=== PATIENT | female | born 1970 | race Caucasian/White ===

== ENCOUNTER 2024-04-04 17:37 | Inpatient (IN) | payer OTHER, SELFPAY ==
[2024-04-04] VITALS (13 sets, daily range): BP systolic 117–147; BP diastolic 81–101; BMI 19.9
[2024-04-04 13:01] LABS: % Basophils 0.7 % (0-2); % Eosinophils 0.9 % (0-6); % Immature Granulocytes 0.4 % (0-0.5); % Lymphocytes 9.9 % (20.5-51.1); % Monocytes 3.9 % (1.7-9.3); % Neutrophils 84.2 % (42.2-75.2); Absolute Basophils 0.1 10^3/uL (0-0.2); Absolute Eosinophils 0.1 10^3/uL (0-0.7); Absolute Immature Granulocytes 0.1 10^3/uL (0-0.05); Absolute Lymphocytes 1.3 10^3/uL (1.2-3.4); Absolute Monocytes 0.5 10^3/uL (0.1-0.6); Hematocrit 47.6 % (37.0-47.0); Hemoglobin 16.4 g/dL (12.0-16.0); Mean Corp Hgb Conc. 34.5 g/dL (33.0-37.0); Mean Corpuscular Hgb 34.2 pg (27.0-31.0); Mean Corpuscular Volume 99.4 fL (81.0-99.0); Mean Platelet Volume 10.3 fL (7.4-10.4); Nucleated Red Blood Cells % 0 %; Platelet Count 302 10^3/uL (130-400); Red Blood Cell Count 4.79 10^6/uL (4.20-5.40); Red Cell Dist. Width 12.1 % (11.5-14.5)
[2024-04-04 13:22] LABS: ALT (SGPT) 21 U/L (0-35); AST (SGOT) 25 U/L (14-36); Albumin 5.8 g/dl (3.5-5.0); Alkaline Phosphatase 89 U/L (38-126); Blood Urea Nitrogen 17 mg/dl (7-17); Calcium 10.8 mg/dl (8.4-10.2); Carbon Dioxide 24 mmol/L (22-30); Chloride 105 mmol/L (98-107); Estimated Creatinine Clearance 69 ml/min; Glucose 125 mg/dl (70-99); Potassium 5.3 mmol/L (3.5-5.1); Sodium 144 mmol/L (135-145); Total Bilirubin 0.6 mg/dl (0.2-1.3); Total Protein 9.3 g/dl (6.3-8.2); eGFR > 60.00
--- NOTE | 2024-04-04 13:28 | ED.GENMED ---
History of Present Illness
<Nancy aClhoun PA-C - Last Filed: 04/04/24 16:53>
General
Chief Complaint: Blood Pressure Problem
Source: patient
Exam Limitations: none
Time Seen by Provider: 04/04/24 12:51
Nursing documentation reviewed up to this point in time: agreed with
Travel History
Have you had any contact with someone who has COVID-19?: No
Do you have any symptoms of coronavirus? Fever > 100 degrees, chills, cough, shortness of breath, sore throat, loss of taste or smell, muscle aches, or headache?: No
History of Present Illness
History of Present Illness:
pt is a 53 y/o F with h/o tachycardia, HTN on losartan
also believes she has some autoimmune process, RA or PMR
has had joitn swelligns and back pain/shoulder pain that she has had prednisone for. she say sshe will take a dose here or there of 60 mg, sometimes using another 40 mg a few days later if still having pains
she has not done a higher dose in a while
but 6 days ago she took 10 mg prednisone but that was it
she is here for having elevated BP readings athome
pt was hospitalized in 11/10 for sepsis related to salmonella colitis
she says ever since then she does have some looser stools but nothing like when she had colitis
she has also had elevated BP readings, and was put on losartan
more recently the 25 mg was inc to 50 mg about 2 weeks ago for readings 190s/110s
pt says that in few days (specifically evenings) pt is having trouble 'regulating my temperature' - feeling cold
she also has had bp readings 140s/90s like this morning
she feels very cold
she denies headache, sore throat, cough, abdomianl pain, vomiting, urinary symptoms
pt has had some joint swelling in right thumb/hand c/w her preivous'flare ups'
she has not had any recent abx, hosptializations
she denies anyIVDA.
Past History
<Nancy Calhonu PA-C - Last Filed: 04/04/24 16:53>
Past History
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
ED Past Surgical History: Orthopedic, Urological (Donor nephrectomy Left) and Other (Oral surgery )
Social History
Tobacco: Former smoker
Alcohol: Daily (wine 1-2 glasses)
Drug: None
Personal:
Living: with family
Employment: Employed
Family History
Family History: Hypertension
Review of Systems
<Nancy Calhoun PA-C - Last Filed: 04/04/24 16:53>
Review of Systems
Allergies reviewed?: Yes
All Other Systems: Not applicable
Phy Exam
<Nancy Calhoun PA-C - Last Filed: 04/04/24 16:53>
Physical Exam
Physical Exam:
GENERAL: AWAKE BUT SOMEWHAT DROWSY, EYES SEEM HEAVY
EYE: pupils equal and reactive
NECK: Supple
ENT: o/p clr, mmm.
CARDIAC: bradycardia, irregular
LUNGS: Clear breath sounds bilaterally, no acute respiratory distress, no wheezes/rales/rhonchi
ABDOMEN: Soft, without focal tenderness, no r/g, no cvat, normal bowel sounds
NEUROLOGICAL: Alert and oriented, no focal neuro deficits
SKIN: Warm and dry, skin intact.mottled
MUSCULOSKELETAL: No edema, well perfused. neg renae's sign
PSYCH: Normal and appropriate interaction.
Course
<Nancy Calhoun PA-C - Last Filed: 04/04/24 16:53>
Orders/Labs/Results
Orders:
Orders
04/04/24 12:27
EKG [Electrocardiogram (*1)] Urgent
Reason for Study: Bradycardia / Tachycardia
EKG- Treatment ONCE
04/04/24 12:51
Complete Blood Count/With Diff Urgent
Comprehensive Metabolic Panel Urgent
Cortisol, Random Urgent
Comment: ADD ON
TSH Reflex To Free T4 Urgent
Comment: ADD ON
Blood Culture Urgent
CHRISTINE Source: Blood/Venous
Specimen Description:
04/04/24 13:19
Add On- LAB Urgent
Tests Added?: tsh reflex t4
C DIFF [C difficile Antigen & Toxins] Urgent
CHRISTINE Source: Feces/Stool
Specimen Description:
Stool Culture Urgent
CHRISTINE Source: Feces/Stool
Specimen Description:
04/04/24 13:41
CT Abd/Pel (IV only)-DH only Urgent
Comment:
Reason For Exam: h/o colitis, hypothermia, sepsis
CR Chest - 2 Views Urgent
Comment:
Reason For Exam: hypothermia
04/04/24 13:42
Add On- LAB Urgent
Tests Added?: cortisol
0.9% Sodium Chloride 1000 ml [Nss] 1,000 ml IV BOLUS
Hydrocortisone Sod Succinate [Solu-Cortef] 100 mg IV NOW STA
04/04/24 14:01
COVID-19 Antigen Urgent
Source: Nasal Swab
Fentanyl, Urine Urgent
Lactic Acid Urgent
Urinalysis Reflex To Culture Urgent
Date Specimen was Collected: 04/04/24
Time Specimen was Collected: 13:56
Urine Drug Abuse Screen Urgent
Date Specimen was Collected: 04/04/24
Time Specimen was Collected: 13:56
Urine Microscopic Reflex Cult Urgent
Blood Culture Urgent
CHRISTINE Source: Blood/Venous
Specimen Description:
Influenza A+B Rapid Molecular Urgent
CHRISTINE Source: Nasal Swab
Specimen Description:
Abnormal Lab Results
04/04/24 04/04/24
12:51 14:01
WBC 13.0 H 10^3/uL
(4.8-10.8)
Hgb 16.4 H g/dL
(12.0-16.0)
Hct 47.6 H %
(37.0-47.0)
MCV 99.4 H fL
(81.0-99.0)
MCH 34.2 H pg
(27.0-31.0)
Abs Immat Gran (auto) 0.1 H 10^3/uL
(0-0.05)
Absolute Neuts (auto) 11.0 H 10^3/uL
(1.4-6.5)
Neutrophils % 84.2 H %
(42.2-75.2)
Lymphocytes % 9.9 L %
(20.5-51.1)
Potassium 5.3 H mmol/L
(3.5-5.1)
Glucose 125 H mg/dl
(70-99)
Lactic Acid 2.7 H mmol/L
(0.7-2.0)
Calcium 10.8 H mg/dl
(8.4-10.2)
Total Protein 9.3 H g/dl
(6.3-8.2)
Albumin 5.8 H g/dl
(3.5-5.0)
Leukocyte Esterase Rfl Trace A
(Negative)
Ur Buprenorphine Positive H
(Negative)
Ur Amphetamines Screen Positive H
(Negative)
U Benzodiazepines Scrn Positive H
(Negative)
U Marijuana (THC) Screen Positive H
(Negative)
04/04/24 12:51
04/04/24 12:51
Vital Signs
Initial and Last Documented VS:
Initial Vital Signs
Pulse Resp BP Pulse Ox
58 16 142/87 99
04/04/24 11:19 04/04/24 11:19 04/04/24 11:19 04/04/24 11:19
Last Documented Vital Signs
Temp Pulse Resp BP Pulse Ox
96.9 F L 71 11 123/89 99
04/04/24 16:22 04/04/24 16:15 04/04/24 16:00 04/04/24 16:15 04/04/24 16:15
<Russell Wu, DO - Last Filed: 04/04/24 13:48>
Orders/Labs/Results
Orders:
Orders
04/04/24 12:27
EKG [Electrocardiogram (*1)] Urgent
Reason for Study: Bradycardia / Tachycardia
EKG- Treatment ONCE
04/04/24 12:51
Complete Blood Count/With Diff Urgent
Comprehensive Metabolic Panel Urgent
Cortisol, Random Urgent
Comment: ADD ON
TSH Reflex To Free T4 Urgent
Comment: ADD ON
Blood Culture Urgent
CHRISTINE Source: Blood/Venous
Specimen Description:
04/04/24 13:19
Add On- LAB Urgent
Tests Added?: tsh reflex t4
C DIFF [C difficile Antigen & Toxins] Urgent
CHRISTINE Source: Feces/Stool
Specimen Description:
Stool Culture Urgent
CHRISTINE Source: Feces/Stool
Specimen Description:
04/04/24 13:41
CT Abd/Pel (IV only)-DH only Urgent
Comment:
Reason For Exam: h/o colitis, hypothermia, sepsis
CR Chest - 2 Views Urgent
Comment:
Reason For Exam: hypothermia
04/04/24 13:42
Add On- LAB Urgent
Tests Added?: cortisol
0.9% Sodium Chloride 1000 ml [Nss] 1,000 ml IV BOLUS
Hydrocortisone Sod Succinate [Solu-Cortef] 100 mg IV NOW STA
04/04/24 14:01
COVID-19 Antigen Urgent
Source: Nasal Swab
Fentanyl, Urine Urgent
Lactic Acid Urgent
Urinalysis Reflex To Culture Urgent
Date Specimen was Collected: 04/04/24
Time Specimen was Collected: 13:56
Urine Drug Abuse Screen Urgent
Date Specimen was Collected: 04/04/24
Time Specimen was Collected: 13:56
Urine Microscopic Reflex Cult Urgent
Blood Culture Urgent
CHRISTINE Source: Blood/Venous
Specimen Description:
Influenza A+B Rapid Molecular Urgent
CHRISTINE Source: Nasal Swab
Specimen Description:
Abnormal Lab Results
04/04/24 04/04/24
12:51 14:01
WBC 13.0 H 10^3/uL
(4.8-10.8)
Hgb 16.4 H g/dL
(12.0-16.0)
Hct 47.6 H %
(37.0-47.0)
MCV 99.4 H fL
(81.0-99.0)
MCH 34.2 H pg
(27.0-31.0)
Abs Immat Gran (auto) 0.1 H 10^3/uL
(0-0.05)
Absolute Neuts (auto) 11.0 H 10^3/uL
(1.4-6.5)
Neutrophils % 84.2 H %
(42.2-75.2)
Lymphocytes % 9.9 L %
(20.5-51.1)
Potassium 5.3 H mmol/L
(3.5-5.1)
Glucose 125 H mg/dl
(70-99)
Lactic Acid 2.7 H mmol/L
(0.7-2.0)
Calcium 10.8 H mg/dl
(8.4-10.2)
Total Protein 9.3 H g/dl
(6.3-8.2)
Albumin 5.8 H g/dl
(3.5-5.0)
Leukocyte Esterase Rfl Trace A
(Negative)
Ur Buprenorphine Positive H
(Negative)
Ur Amphetamines Screen Positive H
(Negative)
U Benzodiazepines Scrn Positive H
(Negative)
U Marijuana (THC) Screen Positive H
(Negative)
04/04/24 12:51
04/04/24 12:51
Vital Signs
Initial and Last Documented VS:
Initial Vital Signs
Pulse Resp BP Pulse Ox
58 16 142/87 99
04/04/24 11:19 04/04/24 11:19 04/04/24 11:19 04/04/24 11:19
Last Documented Vital Signs
Temp Pulse Resp BP Pulse Ox
96.9 F L 71 11 123/89 99
04/04/24 16:22 04/04/24 16:15 04/04/24 16:00 04/04/24 16:15 04/04/24 16:15
<Nancy Calhoun PA-C - Last Filed: 04/04/24 16:53>
MDM/Problems Addressed
Differential Diagnosis Includes:
myxedema, sepsis, adrenal crisis
MDM/Problems Addressed:
53 y/o F with h/o htn on losartan; salmonella colitis in 11/10 causing sepsis;
and self-proclaimed PMR or RA of some sort that she self treats with prednisone here and there
here with hypothermia x 2-3 days, feeling really cold at home and having elevated bp readings 140s/90s
pt was sleepy, bradycardic 40s-50s, hypothermic 91 core temp on arrival, normal BP
really no exam findings that were concerning
recently last took pred about 6 days ago she says, just 10 mg
given stress dose steroids and w/u for sepsis; her lactic is 2.7, wbc 13, other labs are unremarkable, including normal sodium, normal tsh
chest xr neg, ua neg, ctap neg
initial supsicion was sepsis vs. hypothyroid vs. adrenal insufficience
her temp is up to 96 core after beirhugger
but will admit for unclear cause of hypothermia
seen by ed attending dr. wu
<Russell Wu DO - Last Filed: 04/04/24 13:48>
*Critical Care Note
Total Time (30-74mins, 75-104mins- exclusive of procedures): 30
ED Attending Note
<Nancy Calhoun PA-C - Last Filed: 04/04/24 16:53>
-
Portions of this chart may have been created with voice recognition software.� Occasional wrong word or��sound alike� substitutions may have occurred due to the inherent limitations of voice recognition software.
<Russell Wu DO - Last Filed: 04/04/24 13:48>
ED Attending Note
Patient seen and examined by attending physician: Yes
I performed the substantive portion of visit, reviewed & personally made and approve the management plan that is documented in note by myself or HERBERT.: Yes
ED Attending Note:
Seen with PA examined independently 53-year-old female presents with fatigue severe hypothermia
Takes steroids on her own for back pain no history of thyroid issue was admitted with bacteremia few months ago
Looks confused here, plan will be cultures stress dose steroids admission
Discharge Plan
Departure
Patient Disposition: Admit
Date of Disposition: 04/04/24
Time of Disposition: 16:23
Admit to: Telemetry
Presentation/result/management discussed w/ accepting MD/DO: Hospitalist
Condition: Fair
Covid-19: Not Applicable
Discharge Problem:
Hypothermia
Prescriptions:
No Action
losartan 50 mg tablet
50 mg PO DAILY
ondansetron HCl 4 mg tablet
4 mg PO Q8H PRN (Reason: nausea/vomiting)
propranolol 60 mg capsule,extended release 24 hr
60 mg PO DAILY PRN (Reason: tachycardia)
oxycodone-acetaminophen 5-325 mg tablet
1 tab PO Q4H PRN (Reason: moderate pain)
Patient Comments:
04/04/2024: last filled 03/20/24, 20 tabs for 10 days from [facility]
potassium chloride 10 mEq tablet,ER particles/crystals
10 meq PO DAILY PRN (Reason: cramping)
omega 5-jmo-npz-fish oil [Fish Oil] 1,000 mg (120 mg-180 mg) Capsule
1 cap PO DAILY PRN (Reason: supplement)
Daily Greens
1 tab PO DAILY PRN (Reason: supplement)
rizatriptan [Maxalt] 10 mg Tablet
10 mg PO DAILY PRN (Reason: migraine)
Referrals:
Amilcar Crawford MD [Family Provider] -
Interventions
Interventions:
*Risk Screen - Suicide Last Done: 04/04/24 11:19
*General Assessment Last Done: 04/04/24 12:28
*Neglect/Abuse Screening Last Done: 04/04/24 11:19
ED- Fall Risk Assessment Last Done: 04/04/24 12:31
*ED COVID-19 Vaccine History Last Done: 04/04/24 11:19
ED- Cardiac Assessment Last Done: 04/04/24 12:31
ED- Neurological Assessment Last Done: 04/04/24 12:31
ED- Pulmonary Assessment Last Done: 04/04/24 12:31
Discharge Date and Time
Print Language: TELUGU
[2024-04-04] MEDS: SOLU-CORTEF 100 MG IV (14:34)
[2024-04-04] MEDS: NSS 1000 IV (14:34)
[2024-04-04 14:39] LABS: Lactic Acid 2.7 mmol/L (0.7-2.0); Urine Albumin Negative (Neg - Trace); Urine Bilirubin Negative (Negative); Urine Character Clear (Clear); Urine Color Yellow; Urine Glucose Negative (Negative); Urine Ketone Negative (Negative); Urine Leukocyte Trace (Negative); Urine Nitrite Negative (Negative); Urine Occult Blood Negative (Negative); Urine Specific Gravity 1.025 (<1.030); Urine Urobilinogen Negative (Neg - 1+)
[2024-04-04 14:45] LABS: COVID-19 Antigen Negative (Negative)
[2024-04-04 15:06] LABS: Amphetamines Positive (Negative); Barbiturates Negative (Negative); Benzodiazepines Positive (Negative); Buprenorphine Positive (Negative); Cocaine Negative (Negative); Marijuana Positive (Negative); Methadone Negative (Negative); Methamphetamines Negative (Negative); Opiates Negative (Negative); Phencyclidine Negative (Negative); Tricyclic Antidepressants Negative (Negative)
[2024-04-04 15:12] LABS: Urine Mucus Many
[2024-04-04 15:13] LABS: Urine Amorphous Seen; Urine Urothelial Cell 0-2 /LPF (FEW)
[2024-04-04 15:14] LABS: Urine Red Blood Cell 0-2 /HPF (0-2); Urine White Cell 0-2 /HPF (0-5)
[2024-04-04 15:29] LABS: Fentanyl, Urine Negative (Negative)
[2024-04-04 16:20] LABS: Cortisol, Random 30.9 ug/dl; TSH Reflex To Free T4 3.61 uIU/ml (0.47-4.68)
--- NOTE | 2024-04-04 16:56 | W.PN.UPDATE ---
Update Note
Progress Note Update
This note serves as an addendum to H&P written by SARANYA Aparicio.
I saw and examined the patient.
The LIBRARIAN's note was reviewed and I agree with the note.
Comment:
Ms. Elissa Shepherd is a 53 yo woman with hx migraine, admission 11/10 for sepsis 2/2 Salmonella colitis, PMR versus RA on intermittent prednisone dosing presents to the ER feeling cold and with BP 140/90's.
Triage VS: T 96.9, P 58, RR 16, BP 142/87, SpO2 99%
LABS: WBC 13, Hg 16.4, PLT 302, Na 144, K+ 5.3, Cr 0.9, Glucose 125, Lactate 2.7, random cortisol was 30.9, TSH 3.61
UA with 0-2 WBC and trace leuk esterase
UTox positive for buprenorphine, amphetamines, benzodiazepines, marijuana
CT A/P
IMPRESSION:
1. No CT evidence of significant colitis or bowel inflammatory process. No evidence of intestinal obstruction.
2. Mild fecal retention within the rectum suggestive of constipation.
3. Mild colonic diverticulosis without evidence of diverticulitis.
CXR
IMPRESSION:
Thick band of subsegmental atelectasis or scarring in the anteromedial basilar segment of the left lower lobe.
Patient placed on Vlad Hugger with improvement in body temperature , IV hydrocortisone 100 x 1, IVF
Hypothermia
Bradycardia
Severe Sepsis versus SIRS 2/2 drug use/withdrawal with elevated lactate
-admit to IMU
-no source of infection identified but given presentation will treat with broad spectrum antibiotics until cultures return
-continue IV Vanc/Cefepime
-F/U blood cultures
-patient denied drug use to me; stated maybe she mistook her son's aderall for her probiotics
-trend lactate and bolus PRN
-vlad hugger as needed
-TSH and Cortisol level WNL
Hx Salmonella with post-hospitalization course c/b joint pains
-patient reports right shoulder stiffness and pain in mornings that gets better throughout the day
-states local Rheumatologists won't take her insurance; could possibly follow in the city
-she takes prednisone as needed but denies daily dosing and last dose was 6 days ago- cortisol levels WNL
Hx Migraines
-can order reglan and benadryl PRN
-patient worried she gets migraines with antibiotics
-will also order probiotics
76 minutes spent on patient evaluation, plan of care.
--- NOTE | 2024-04-04 17:28 | HPS.HSE ---
Family Physician
-
Family Physician: Amilcar Crawford
Chief Complaint
-
Hypothermia
History of Present Illness
This is a 53 year old female with a past medical history of hypertension who presents to ED with parents at bedside due to hypothermia. Family at bedside states that the patient appeared confused, cyanotic and had slurred speech this morning. Upon
taking her temperature, it was 91 degrees. Patient also states she has intermittent nausea and had episode of loose stools yesterday which is unusual for her. She also complains of joint pain since her last admission for which she takes prednisone
as needd. Her last dose of prednisone was 10 mg on Sunday. She denies chest pain or shortness of breath.
Medical History
Past Medical History
Past Medical History: Reports Other
Additional Past Medical History:
Essential Hypertension
Asthma
Migraine Headache
Solitary Kidney
Past Surgical History: Reports Other
Additional Past Surgical History:
Right Breast Lumpectomy
Microdiscectomy
Giant Cell Tumor Removal Right Mandible
Left Nephrectomy (patient was a donor)
Bilateral Knee Ligament Surgery
Social History
Tobacco: Former Smoker
Alcohol: Daily (2 glasses of wine)
Family History
Family History: Other (father hx chrons and RA, Maternal grandmom diverticulosis)
Allergies / Home Medications
Allergies reflects when Allergies were last updated in [facility].
Home Medications with original date entered in [facility]
Allergy/Medication List:
Allergies
Allergy/AdvReac Type Severity Reaction Status Date / Time
No Known Allergies Allergy Verified 04/04/24 17:26
Home Medications
Daily Greens 1 tab PO DAILY PRN supplement 04/04/24
losartan 50 mg tablet 50 mg PO DAILY 04/04/24
omega 9-nyh-vfy-fish oil 1,000 mg (120 mg-180 mg) capsule (Fish Oil) 1 cap PO DAILY PRN supplement 04/04/24
ondansetron HCl 4 mg tablet 4 mg PO Q8H PRN nausea/vomiting 04/04/24
oxycodone-acetaminophen 5 mg-325 mg tablet 1 tab PO Q4H PRN moderate pain 04/04/24
potassium chloride 10 mEq tablet,extended release(part/cryst) 10 meq PO DAILY PRN cramping 04/04/24
propranolol 60 mg capsule,24 hr,extended release 60 mg PO DAILY PRN tachycardia 04/04/24
rizatriptan 10 mg tablet (Maxalt) 10 mg PO DAILY PRN migraine 04/04/24
Review of Systems
-
A 12 point ROS was completed and negative except as noted: Yes
Constitutional: Reports Chills; Denies Fever
Respiratory: Denies Cough or Trouble Breathing
Cardiac: Denies Chest Pain
Abdomen/GI: Reports Other (Loose stools yeseterday); Denies Abdominal Pain
Physical Exam
Vital Signs
Vital Signs
Temp Pulse Resp BP Pulse Ox
96.9 F L 74 15 131/96 100
04/04/24 16:22 04/04/24 17:15 04/04/24 17:00 04/04/24 17:00 04/04/24 17:00
Physical Exam
General: Well Developed and Well Nourished
HEENT: Moist mucous membranes and Atraumatic
Respiratory: Clear and Non Labored Respirations
Cardiac: S1/S2, Regular Rhythm and Bradycardia (Slightly)
GI: Soft and Non Tender
Musculoskeletal: No Clubbing, No Cyanosis and No Edema
Skin: Warm and Dry
Neuro: Awake, Alert, No Motor Deficits and Other (Slow to respond to questions)
Laboratory Results
-
04/04/24 12:51
04/04/24 12:51
Laboratory Results
Lactic Acid 2.7 mmol/L (0.7-2.0) H 04/04/24 14:01
Total Bilirubin 0.6 mg/dl (0.2-1.3) 04/04/24 12:51
AST 25 U/L (14-36) 04/04/24 12:51
ALT 21 U/L (0-35) 04/04/24 12:51
Alkaline Phosphatase 89 U/L (38-126) 04/04/24 12:51
Data Reviewed
-
Diagnostic Radiology: Report Reviewed by me
CT Scan: Report Reviewed by me
Lab Data: Labs Reviewed by me
Impression/Plan
-
Hypothermia, possible Sepsis vs SIRS secondary to drug use/withdrawal with elevated lactic acid
-Continue vancomycin and cefepime
-Continue warming blanket
-Await blood cultures
-Trend lactic acid level
Hyperkalemia / Hypercalcemia, suspect volume depletion
-Continue IVFs
-Hold losartan
-Repeat labs in AM
Essential Hypertension
-Hold losartan
Migraine Headache
-Continue Benadryl and Reglan prn
DVT proph: Lovenox
Code Status: Full Code
[2024-04-04] MEDS: VANCOCIN 300 MG IV (17:55)
[2024-04-04] MEDS: VANCOCIN 300 ML IV (17:55)
[2024-04-04 19:11] LABS: Lactic Acid 1.1 mmol/L (0.7-2.0)
--- NOTE | 2024-04-04 19:33 | PHA.VAN.IN ---
Assessment
- Assessment
Renal Function: Appears similar to baseline
Minimum Temperature: 91 F rectal 04/04 @ 1130
Concomitant Antimicrobials: cefepime
AUC Dosing Plan
- Dosing Variables
Dosing Weight (kg): 59.2
Dosing CrCl (ml/min): 69
Vd coefficient (L/kg): 0.7
- Empiric Dosing
Initial / Loading Dose: vanc 1500mg administered @ 1755
Maintenance Regimen: vanc 500mg Q12 starting 04/05 0600
Estimated AUC (mcg*h/mL): 403
Estimated Peak (mcg*h/mL): 23.1
Estimated Trough (mcg/ml): 11.7
Estimated Half Life (H): 11.2
- Monitoring
No levels ordered at this time: consider levels in next few days
Pharmacokinetics Vancomycin I
- -
Patient Age: 53
Patient Sex: Female
Vancomycin Day #: 1
Indication: Bacteremia
Requesting Provider: Dr. Hernadez
Pertinent Antimicrobial Allergies:
no pertinent antimicrobial allergies
Height / Weight:
Height 5 ft 8 in
Actual Weight 59.24 kg
- Vital Signs / Lab Results
Temp Pulse Resp BP Pulse Ox
97.6 F 81 16 131/96 100
04/04/24 19:32 04/04/24 18:30 04/04/24 18:30 04/04/24 17:00 04/04/24 18:15
Lab Results - Hematology
04/04/24
12:51
WBC 13.0 H
Lab Results - Chemistry
04/04/24
12:51
BUN 17
Creatinine 0.9
Estimated Creat Clear 69
Albumin 5.8 H
04/04/24 04/04/24
14:01 18:51
Lactic Acid 2.7 H 1.1
Lab Results - Urine
04/04/24
14:01
Urine Nitrite (Reflex) Negative
Leukocyte Esterase Rfl Trace A
Urine WBC (Reflex) 0-2
Ur Squamous Epith Cells 3-5
Microbiology Results
04/04/24 14:01 Influenza Types A & B (JUSTICE) - Final
Nasal Swab Negative for Influenza A & B, NAAT
Negative results must be combined with clinical observations
and patient history.
Nucleic Acid Amplification test (NAAT)performed on the
[employer] NOW platform.
--- NOTE | 2024-04-04 19:38 | PTCARENOTE ---
Received from ED 3356- IMU monitors placed- IV Bo in progress. Temp 98.1 orally- warm blankets placed.
[2024-04-04] MEDS: LR 1000 IV (20:18)
[2024-04-04] MEDS: STERILE WATER FOR INJECTION 10 ML IV (20:19)
[2024-04-04] MEDS: MAXIPIME 2000 MG IV (20:19)
[2024-04-04] MEDS: LOVENOX 40 MG SC (20:21)
[2024-04-04] MEDS: TYLENOL 650 MG PO (21:23)
--- NOTE | 2024-04-04 22:24 | PTCARENOTE ---
Assumed care of pt after walking rounds. Pt is pleasant alert with a flat affect. Admission information obtained. House CAPACITY PLANNING ANALYST notified of Urine toxicology report. Pt does report prescription medications and med list reviewed and verified with
patient. Diet order obtained as pt reports she was feeling hungry. Pt's boyfriend was here at begin of shift and then left, she was on phone with him and she was becoming agitated with raised voice and her hear rate was in 140s. Upon assessment, pt
reports she was arguing with Boyfriend and felt frustrated. As I assessed and discussed emotions with pt, heart rate began to lower. Pt reports she feels her 'tachycardia' and has a known history of it. Lactic now 1.1. pt sipping fluids. OOB with
standby assist. Gait steady. Pt denies diarrhea.
[2024-04-04] MEDS: BENADRYL 25 MG IV (23:10)
[2024-04-05] VITALS (10 sets, daily range): BP systolic 107–140; BP diastolic 66–104; BMI 20.6
[2024-04-05] MEDS: MAXIPIME 2000 MG IV ×3 (02:50→17:11)
[2024-04-05] MEDS: STERILE WATER FOR INJECTION 10 ML IV ×3 (02:50→17:11)
[2024-04-05] MEDS: FLUSH (NSS) 2 FLUSH IV (02:52)
--- NOTE | 2024-04-05 03:42 | PTCARENOTE ---
No further tachycardia. Pt did c/o migraine beginning and IV Benadryl given which was effective and then pt slept quietly for approx 2 hours.
--- NOTE | 2024-04-05 03:50 | PTCARENOTE ---
OOB to ambulate to bathroom, gait slow and steady. Pt voids without difficulty. No bowel movements or GI distress
[2024-04-05] MEDS: VANCOCIN HCL 500 MG 100 IV ×2 (05:45→17:11)
[2024-04-05] MEDS: LR 1000 IV ×2 (05:45→15:25)
[2024-04-05 06:36] LABS: Blood Urea Nitrogen 13 mg/dl (7-17); Calcium 9.6 mg/dl (8.4-10.2); Carbon Dioxide 25 mmol/L (22-30); Chloride 104 mmol/L (98-107); Estimated Creatinine Clearance 78 ml/min; Glucose 89 mg/dl (70-99); Magnesium 1.9 mg/dl (1.6-2.3); Potassium 4.1 mmol/L (3.5-5.1); Sodium 136 mmol/L (135-145); eGFR > 60.00
[2024-04-05 06:37] LABS: Hematocrit 34.8 % (37.0-47.0); Mean Corp Hgb Conc. 35.1 g/dL (33.0-37.0); Mean Corpuscular Hgb 33.8 pg (27.0-31.0); Mean Corpuscular Volume 96.4 fL (81.0-99.0); Platelet Count 251 10^3/uL (130-400); Red Blood Cell Count 3.61 10^6/uL (4.20-5.40); Red Cell Dist. Width 12.2 % (11.5-14.5); White Blood Cell Count 10.2 10^3/uL (4.8-10.8)
[2024-04-05 06:45] LABS: Hemoglobin 12.2 g/dL (12.0-16.0)
--- NOTE | 2024-04-05 07:46 | W.PN.HOSP.TC ---
Today's Communication/Plan
-
see plan
Assessment / Plan
Assessment / Plan
Ms. Elissa Shepherd is a 53 yo woman with hx migraine, admission 11/10 for sepsis 2/2 Salmonella colitis, PMR versus RA on intermittent prednisone dosing presents to the ER feeling cold and with BP 140/90's. Triage vitals significant for
hypothermia. Labs with elevated lactate. UTox positive for buprenorphine, amphetamines, benzodiazepines, marijuana although patient only admits to ativan and marijuana. CT A/P, UA, CXR, Flu/covid testing w/out e/o infection. Presentation may be
2/2 severe sepsis unknown source versus SIRS 2/2 drug use/withdrawal.
CT A/P
IMPRESSION:
1. No CT evidence of significant colitis or bowel inflammatory process. No evidence of intestinal obstruction.
2. Mild fecal retention within the rectum suggestive of constipation.
3. Mild colonic diverticulosis without evidence of diverticulitis.
CXR
IMPRESSION:
Thick band of subsegmental atelectasis or scarring in the anteromedial basilar segment of the left lower lobe.
Patient placed on Vlad Hugger with improvement in body temperature , IV hydrocortisone 100 x 1, IVF
Hypothermia
Bradycardia
Severe Sepsis versus SIRS 2/2 drug use/withdrawal with elevated lactate
-admitted to IMU
-no source of infection identified but given presentation will treat with broad spectrum antibiotics until cultures return
-continue IV Vanc/Cefepime (day 2)
-F/U blood cultures
-patient denied drug use to me; stated maybe she mistook her son's aderall for her probiotics
-lactate now cleared
-patient normotensive
-TSH and Cortisol level WNL
Hx Salmonella with post-hospitalization course c/b joint pains - concern for reactive arthritis
-patient reports bilateral shoulder, wrist, thumb and hip stiffness and pain in mornings that gets better throughout the day
-states local Rheumatologists won't take her insurance; could possibly follow in the city
-she takes prednisone as needed but denies daily dosing and last dose was 6 days ago- cortisol levels WNL
-I will touch base with Rheumatology later today
Hx Migraines
-can order reglan and benadryl PRN
-patient worried she gets migraines with antibiotics
-will also order probiotics
Anticipated Discharge: 24 - 48 hours
Subjective/Interval History
-
Date of Service: April 05, 2024
feeling well today
normothermic
denies joint pain this morning
Objective Data
-
Labs:
Laboratory Results
04/05/24 04/05/24
06:10 11:00
WBC 10.2
Hgb 12.2 D Pending
Hct 34.8 L
Plt Count 251
Sodium 136 D
Potassium 4.1
Chloride 104
Carbon Dioxide 25
BUN 13
Creatinine 0.8
Glucose 89
Calcium 9.6
Vital Signs:
Vital Signs
Temp Pulse Resp BP Pulse Ox
97.9 F 67 13 121/97 97
04/05/24 06:30 04/05/24 06:00 04/05/24 06:00 04/05/24 06:00 04/05/24 06:00
I&O
04/04/24 04/05/24 04/06/24
06:59 06:59 06:59
Intake Total 2630 / 2630
Balance 2630 / 2630
Review of Systems
-
History Source: Patient
All other systems: Reviewed and negative
Physical Exam
-
General: No Apparent Distress
HEENT: Negative Oxygen
GI: Nondistended and Tender
Genito-urinary: No Costovertebral Tender
Neuro: AO x 3
Psych: Calm
Data Reviewed
-
Diagnostic Radiology: Report Reviewed by me
Labs: Labs Reviewed by me
--- NOTE | 2024-04-05 08:09 | PHA.VAN.FU ---
Vancomycin Assessment / Plan
- Assessment
Renal Function: Stable
WBC's are: Trending Down
In the past 24 hrs, patient has been: Afebrile
Concomitant Antimicrobials: CEFEPIME
- Dosing Plan
Continue: 500MG Q12H
- Monitoring Plan
Peak Level: 04/06 @2030
Trough Level: 04/07 @0530
- Follow Up
Pharmacy will continue to follow.
Vancomycin Follow UP
- -
Patient Age: 53
Patient Sex: Female
Vancomycin Day #: 2
Indication: Bacteremia
Requesting Provider: Dr. Hernadez
Pertinent Antimicrobial Allergies:
no pertinent antimicrobial allergies
Height / Weight:
Height 5 ft 8 in
Actual Weight 61.3 kg
- Vital Signs / Lab Results
Temp Pulse Resp BP Pulse Ox
97.9 F 67 13 121/97 97
04/05/24 06:30 04/05/24 06:00 04/05/24 06:00 04/05/24 06:00 04/05/24 06:00
Lab Results - Hematology
04/04/24 04/05/24
12:51 06:10
WBC 13.0 H 10.2
Lab Results - Chemistry
04/04/24 04/05/24
12:51 06:10
BUN 17 13
Creatinine 0.9 0.8
Estimated Creat Clear 69 78
Albumin 5.8 H
04/04/24 04/04/24
14:01 18:51
Lactic Acid 2.7 H 1.1
Lab Results - Urine
04/04/24
14:01
Urine Nitrite (Reflex) Negative
Leukocyte Esterase Rfl Trace A
Ur Squamous Epith Cells 3-5
Microbiology Results
04/04/24 14:01 Influenza Types A & B (JUSTICE) - Final
Nasal Swab Negative for Influenza A & B, NAAT
Negative results must be combined with clinical observations
and patient history.
Nucleic Acid Amplification test (NAAT)performed on the
[employer] platform.
[2024-04-05] MEDS: VISBIOME 1 CAP PO (09:35)
[2024-04-05 13:46] LABS: Hemoglobin 12.2 g/dL (12.0-16.0)
--- NOTE | 2024-04-05 16:06 | CM ---
Patient seen in room.
Walking in room.
IA completed.
Lives with significant other in a bilevel home with 5 steos to enter.
Patient works and drives.
No VN or skilled rehab.
PCp: Dr Crawford
Pharmacy: [facility]
Plan: home no needs.
[2024-04-05] MEDS: LOVENOX SC (17:11)
[2024-04-06] MEDS: STERILE WATER FOR INJECTION 10 ML IV (02:22)
[2024-04-06] MEDS: MAXIPIME 2000 MG IV (02:24)
[2024-04-06 02:28] VITALS: BP 129/78
--- NOTE | 2024-04-06 02:37 | PTCARENOTE ---
Pt awake and having stiff joints. Tylenol offered and refused. Pt stating 'steroids are what help'. Stretching and movement done to help with discomfort. Pt will speak to Dr in morning. Assessment care and vitals as charted.
[2024-04-06 04:12] VITALS: BP 146/87
[2024-04-06 04:33] VITALS: BP 156/97
--- NOTE | 2024-04-06 04:50 | PTCARENOTE ---
Pt c/o lower sternal and stomach burning chest pain. PAin 3/10, burning and tightness. Pt denies SOB, satting 95% on RA, BP 156/97, HR 58. Pt NSR on monitor. Alert and oriented. TELEGRAPHIC TYPEWRITER REPAIRER notified. Order received for EKG and troponin level.
[2024-04-06 05:00] LABS: % Basophils 0.8 % (0-2); % Eosinophils 3.6 % (0-6); % Immature Granulocytes 0.5 % (0-0.5); % Lymphocytes 26.4 % (20.5-51.1); % Neutrophils 60.7 % (42.2-75.2); Absolute Basophils 0.1 10^3/uL (0-0.2); Absolute Eosinophils 0.2 10^3/uL (0-0.7); Absolute Lymphocytes 1.7 10^3/uL (1.2-3.4); Absolute Monocytes 0.5 10^3/uL (0.1-0.6); Absolute Neutrophils 3.9 10^3/uL (1.4-6.5); Hematocrit 33.7 % (37.0-47.0); Hemoglobin 11.6 g/dL (12.0-16.0); Mean Corp Hgb Conc. 34.4 g/dL (33.0-37.0); Mean Corpuscular Hgb 33.9 pg (27.0-31.0); Mean Corpuscular Volume 98.5 fL (81.0-99.0); Mean Platelet Volume 10.3 fL (7.4-10.4); Nucleated Red Blood Cells % 0 %; Platelet Count 227 10^3/uL (130-400); Red Blood Cell Count 3.42 10^6/uL (4.20-5.40); White Blood Cell Count 6.4 10^3/uL (4.8-10.8)
[2024-04-06 05:10] LABS: ALT (SGPT) 12 U/L (0-35); AST (SGOT) 17 U/L (14-36); Albumin 3.5 g/dl (3.5-5.0); Alkaline Phosphatase 62 U/L (38-126); Blood Urea Nitrogen 12 mg/dl (7-17); Calcium 9.5 mg/dl (8.4-10.2); Carbon Dioxide 26 mmol/L (22-30); Chloride 105 mmol/L (98-107); Estimated Creatinine Clearance 72 ml/min; Glucose 94 mg/dl (70-99); Magnesium 1.9 mg/dl (1.6-2.3); Potassium 4.2 mmol/L (3.5-5.1); Sodium 138 mmol/L (135-145); Total Bilirubin 0.4 mg/dl (0.2-1.3); Total Protein 5.9 g/dl (6.3-8.2); eGFR > 60.00
[2024-04-06 05:14] LABS: Procalcitonin < 0.05 ng/ml (0.0-0.25)
[2024-04-06] MEDS: NSS (PRESERVATIVE FREE) 10 ML IV (05:16)
[2024-04-06] MEDS: PROTONIX IV 40 MG IV (05:17)
--- NOTE | 2024-04-06 05:30 | PTCARENOTE ---
EKG administered, sent to JEANMARIE, EKG reads sinus bradycardia and otherwise normal EKG. Troponin lab drawn and sent. Order received for Protonix, med administered. Pt admits pain has decreased. Call garcia in reach.
[2024-04-06 05:40] LABS: Troponin I < 0.012 ng/ml
[2024-04-06 06:10] VITALS: BP 154/97
[2024-04-06 06:27] VITALS: BP 145/97
[2024-04-06] MEDS: VANCOCIN HCL 500 MG 100 IV (06:29)
--- NOTE | 2024-04-06 07:32 | W.PN.HOSP.TC ---
Addendum entered and electronically signed by Maryann Hernadez MD 04/06/24 07:55:
patient in a lot of pain this morning
stiffness bilateral shoulders, wrists, MCP. joints are not warm; some mild swelling appreciated, not significantly tender to touch but stiff
she has Prenidsone at home
I will give prednisone 40mg PO x 1 now; she will take 40mg QD at home until sees her primary who can discuss longer course
Original Note:
Today's Communication/Plan
-
OK for DC home today
Assessment / Plan
Assessment / Plan
Ms. Elissa Shepherd is a 53 yo woman with hx migraine, admission 11/10 for sepsis 2/2 Salmonella colitis, PMR versus RA on intermittent prednisone dosing presents to the ER feeling cold and with BP 140/90's. Triage vitals significant for
hypothermia. Labs with elevated lactate. UTox positive for buprenorphine, amphetamines, benzodiazepines, marijuana although patient only admits to ativan and marijuana. CT A/P, UA, CXR, Flu/covid testing w/out e/o infection. Presentation may be
2/2 severe sepsis unknown source versus SIRS 2/2 drug use/withdrawal.
CT A/P
IMPRESSION:
1. No CT evidence of significant colitis or bowel inflammatory process. No evidence of intestinal obstruction.
2. Mild fecal retention within the rectum suggestive of constipation.
3. Mild colonic diverticulosis without evidence of diverticulitis.
CXR
IMPRESSION:
Thick band of subsegmental atelectasis or scarring in the anteromedial basilar segment of the left lower lobe.
Patient placed on Vlad Hugger with improvement in body temperature , IV hydrocortisone 100 x 1, IVF
Hypothermia
Bradycardia
Severe Sepsis versus more likely SIRS 2/2 drug use/withdrawal with elevated lactate
-admitted to IMU
-TSH and Cortisol level WNL
-no source of infection identified. Patient was on broad spectrum abx x 2 days. Blood cultures remain negative and procal negative this morning. I told patient that I believe presentation was intoxication with buprenorphine/ withdrawal from
amphetamines. She states it's possible she took one of her son's medications.
-stop antibiotics
-patient has remained normotensive (now hypertensive), normothermic and with normal pulse over past 24 hours
-OK for DC with close follow up
Hx Salmonella with post-hospitalization course c/b joint pains - concern for reactive arthritis
-patient reports bilateral shoulder, wrist, thumb and hip stiffness and pain in mornings that gets better throughout the day
-states local Rheumatologists won't take her insurance; could possibly follow in the city
-she takes prednisone as needed but denies daily dosing and last dose was 6 days ago- cortisol levels WNL
I spoke to Dr. Ladonna Marquez (Rheumatology) on 04/05 who advised against me started a prednisone course at this point because I will not be able to follow patient. Patient is encourage to follow up with Elevator Repairer Apprentice that will take her insurance and
discuss steroid course versus DMARD
Hx Migraines
-no current migraine
Indigestion
patient describes burning and pressure mid chest overnight that she gets at home relieved with Tums, received IV Protonix and it is now resolved
Anticipated Discharge: Today
Subjective/Interval History
-
Date of Service: April 06, 2024
feeling ok but has joint pain again this morning
no fevers/chills
Objective Data
-
Labs:
Laboratory Results
04/06/24
04:23
WBC 6.4
Hgb 11.6 L
Hct 33.7 L
Plt Count 227
Sodium 138
Potassium 4.2
Chloride 105
Carbon Dioxide 26
BUN 12
Creatinine 0.9
Glucose 94
Calcium 9.5
Total Bilirubin 0.4
AST 17
ALT 12
Alkaline Phosphatase 62
Vital Signs:
Vital Signs
Temp Pulse Resp BP Pulse Ox
98.5 F 75 22 145/97 95
04/06/24 02:43 04/06/24 06:27 04/05/24 14:00 04/06/24 06:27 04/06/24 06:08
I&O
04/05/24 04/06/24 04/07/24
06:59 06:59 06:59
Intake Total 2630 / 2630
Balance 2630 / 2630
Review of Systems
-
History Source: Patient
All other systems: Reviewed and negative
Physical Exam
-
General: No Apparent Distress
HEENT: PERRLA
Respiratory: Clear to Auscultation; Negative Wheezes
Cardiac: Regular Rhythm and S1/S2
GI: Soft and Nontender
Musculoskeletal: No Edema and Other (b/l wrist swelling/stiffness)
Skin: Warm and Dry; Negative Rash
Neuro: AO x 3
Psych: Calm
Data Reviewed
-
Diagnostic Radiology: Report Reviewed by me
Labs: Labs Reviewed by me
--- NOTE | 2024-04-06 07:40 | W.DS.TRANS ---
DC Summary - Scale Attendant
-
Discharge Instructions:
Discharge Diagnosis/Procedures hypothermia and elevated lactate in setting of
likely drug ingestion
Diet Regular
Activity As tolerated
Driving Restrictions As prior to admission
Bathing Restrictions None
Instructions:
Stand-Alone Forms:
Changes to Home Medications: No
Discharge Medications:
DC Medications w/original date entered in [employer]
Daily Greens 1 tab PO DAILY PRN supplement 04/04/24
losartan 50 mg tablet 50 mg PO DAILY Blood Pressure 04/04/24
omega 0-qtm-fys-fish oil 1,000 mg (120 mg-180 mg) capsule (Fish Oil) 1 cap PO DAILY PRN supplement 04/04/24
ondansetron HCl 4 mg tablet 4 mg PO Q8H PRN nausea/vomiting 04/04/24
oxycodone-acetaminophen 5 mg-325 mg tablet 1 tab PO Q4H PRN moderate pain 04/04/24
potassium chloride 10 mEq tablet,extended release(part/cryst) 10 meq PO DAILY PRN cramping 04/04/24
propranolol 60 mg capsule,24 hr,extended release 60 mg PO DAILY PRN tachycardia 04/04/24
rizatriptan 10 mg tablet (Maxalt) 10 mg PO DAILY PRN migraine 04/04/24
Home Medication Changes
Pending Results: Yes
Additional Pending Results:
final blood cultures
--- NOTE | 2024-04-06 07:40 | W.DCSUMMARY ---
Discharge Summary
Discharge Data
Date of Admission: 04/04/24
Date of Discharge: 04/06/24
-
Pending Results: Yes
Additional Pending Results:
final blood cultures
Hospital Course
Discharging Physician : Dr. Maryann Hernadez
Disposition : Home
Primary care physician : Dr. Amilcar Crawford
Principal Discharge diagnosis : SIRS in setting of likely drug intoxication
Hospital Course :
Ms. Elissa Shepherd is a 53 yo woman with hx migraine, admission 11/10 for sepsis 2/2 Salmonella colitis, PMR versus RA on intermittent prednisone dosing presents to the ER feeling cold and with BP 140/90's. Patient found to be hypothermic and
bradycardic to 50's on arrival. She was given a stress dose of steroids in the ER, labs returned with normal TSH and normal cortisol levels. WBC 13, lactate 2.7. UTox positive for buprenorphine and amphetamines. Infectious work-up included
normal CXR, UA without inflammation, CT A/P without acute infection, neg flu and covid. Patient was admitted to medicine with differential being severe sepsis 2/2 sepsis unknown source versus SIRS 2/2 drug intoxication/withdrawal.
Patient was admitted to the IMU and she was placed on IV Vanc and Cefepime. She was normothermic for over 24 hours before discharge. She was no longer bradycardic. Blood cultures have remained negative and procalcitonin this morning is < 0.05.
She has no evidence of infection.
Patient has chronic intermittent joint swelling bilateral shoulders, wrists, MCP since admission last October for Salmonella likely 2/2 reactive arthritis. She has been given intermittent steroids from urgent care and PCP. Joint pain resolved
after hydrocortisone given in ER now returned this morning. I discussed the case with Dr. Ladonna Marquez (Rheumatology) on 04/05 who advised against me started a prednisone course at this point because I will not be able to follow patient. Patient is
encourage to follow up with Mortgage Processing Clerk that will take her insurance and discuss steroid course versus DMARD. Given significant pain day of discharge I am giving her prednisone 40mg PO x 1 here in the hospital and she can continue this dose at
home until sees her PCP who will guide her further depending on when she can get a Rheumatology appointment.
Time spent on discharge was 45 minutes.
Important imaging findings :
CT A/P
IMPRESSION:
1. No CT evidence of significant colitis or bowel inflammatory process. No evidence of intestinal obstruction.
2. Mild fecal retention within the rectum suggestive of constipation.
3. Mild colonic diverticulosis without evidence of diverticulitis.
CXR
IMPRESSION:
Thick band of subsegmental atelectasis or scarring in the anteromedial basilar segment of the left lower lobe.
Procedure findings :
Discharge Plan
-
Patient Disposition: Home (Routine Discharge)
Discharge Diagnosis/Procedures: hypothermia and elevated lactate in setting of likely drug ingestion
Diet: Regular
Activity: As tolerated
Driving Restrictions: As prior to admission
Bathing Restrictions: None
Referrals:
Amilcar Crawford MD [Family Provider] - in less than 1 week
Additional Discharge Medication Instructions: I am giving you prednisone 40mg PO x 1 in the hospital. You can continue 40mg daily until seen by your primary who will guide you further. It is important for you to establish yourself with a
Mortgage Processing Clerk.
Do not take Propranolol until further discuss with your PCP. Your heart rate was low on admission but this was in setting of hypothermia (core body temperature)
Prescriptions:
Continued
losartan 50 mg tablet
50 mg PO DAILY
ondansetron HCl 4 mg tablet
4 mg PO Q8H PRN (Reason: nausea/vomiting)
propranolol 60 mg capsule,extended release 24 hr
60 mg PO DAILY PRN (Reason: tachycardia)
oxycodone-acetaminophen 5-325 mg tablet
1 tab PO Q4H PRN (Reason: moderate pain)
Patient Comments:
04/04/2024: last filled 03/20/24, 20 tabs for 10 days from [facility]
potassium chloride 10 mEq tablet,ER particles/crystals
10 meq PO DAILY PRN (Reason: cramping)
omega 8-isp-ilm-fish oil [Fish Oil] 1,000 mg (120 mg-180 mg) Capsule
1 cap PO DAILY PRN (Reason: supplement)
Daily Greens
1 tab PO DAILY PRN (Reason: supplement)
rizatriptan [Maxalt] 10 mg Tablet
10 mg PO DAILY PRN (Reason: migraine)
Discharge Orders:
Discharge Patient (As Directed); Ordered 04/06/24
Ordered By: Maryann Hernadez
Discharge Date and Time
Print Language: TURKISH
[2024-04-06] MEDS: VISBIOME 1 CAP PO (07:42)
[2024-04-06] MEDS: COZAAR 50 MG PO (07:42)
[2024-04-06] MEDS: DELTASONE 40 MG PO (08:32)
[2024-04-06 10:10] VITALS: BP 136/92
--- NOTE | 2024-04-06 10:43 | PTCARENOTE ---
Reviewed discharge paperwork with patient. Monitor and IV removed; Transport notified - assisted to [facility] pickup via wheelchair. Discharged to home.
== END 2024-04-06 10:45 | disposition home or self-care (01) | DRG 872 ==
LOC: IMU 17:37
PROVIDERS: Nurse Practitioner Family; Physician Assistant; Physician Assistant Medical; ADMITTING PHYSICIAN Student in an Organized Health Care Education/Training Program; EMERGENCY PHYSICIAN Emergency Medicine; FAMILY PHYSICIAN Internal Medicine
DX: A02.1 Salmonella sepsis (principal); J98.11 Atelectasis; A02.9 Salmonella infection, unspecified; R65.20 Severe sepsis without septic shock; Z87.891 Personal history of nicotine dependence; E83.52 Hypercalcemia; E87.5 Hyperkalemia; I10 Essential (primary) hypertension; G43.909 Migraine, unspecified, not intractable, without status migrainosus; K57.30 Diverticulosis of large intestine without perforation or abscess without bleeding; K56.41 Fecal impaction
CPT/HCPCS: 71046; 74177; 80048; 80053; 80306; 80307; 81003; 81015; 82533; 83605; 83735; 84145; 84443; 84484; 85018; 85025; 85027; 87040; 87070; 87147; 87502; 87811; 93005; 96360; 99291; Q9967

== ENCOUNTER 2024-04-10 11:31 | Emergency (ER) | payer OTHER, SELFPAY ==
[2024-04-10 11:40] VITALS: BP 174/106
[2024-04-10 12:10] LABS: % Basophils 0.6 % (0-2); % Eosinophils 1.7 % (0-6); % Immature Granulocytes 0.5 % (0-0.5); % Lymphocytes 6.3 % (20.5-51.1); % Monocytes 8.7 % (1.7-9.3); % Neutrophils 82.2 % (42.2-75.2); Absolute Basophils 0.1 10^3/uL (0-0.2); Absolute Eosinophils 0.3 10^3/uL (0-0.7); Absolute Immature Granulocytes 0.1 10^3/uL (0-0.05); Absolute Lymphocytes 1.1 10^3/uL (1.2-3.4); Absolute Monocytes 1.6 10^3/uL (0.1-0.6); Absolute Neutrophils 14.6 10^3/uL (1.4-6.5); Hematocrit 42.6 % (37.0-47.0); Hemoglobin 14.8 g/dL (12.0-16.0); Mean Corp Hgb Conc. 34.7 g/dL (33.0-37.0); Mean Corpuscular Hgb 34.2 pg (27.0-31.0); Mean Corpuscular Volume 98.4 fL (81.0-99.0); Nucleated Red Blood Cells % 0 %; Platelet Count 361 10^3/uL (130-400); Red Blood Cell Count 4.33 10^6/uL (4.20-5.40); Red Cell Dist. Width 12.1 % (11.5-14.5); White Blood Cell Count 17.7 10^3/uL (4.8-10.8)
--- NOTE | 2024-04-10 12:23 | ED.GENMED ---
History of Present Illness
General
Chief Complaint: Abdominal Symptoms
Source: patient
Exam Limitations: none
Time Seen by Provider: 04/10/24 12:22
Nursing documentation reviewed up to this point in time: agreed with
Travel History
Have you had any contact with someone who has COVID-19?: No
Do you have any symptoms of coronavirus? Fever > 100 degrees, chills, cough, shortness of breath, sore throat, loss of taste or smell, muscle aches, or headache?: No
History of Present Illness
History of Present Illness:
This is a 53-year-old female with past medical history of diverticulitis, asthma, hypertension presenting emergency department today for concerns of abdominal pain that started this morning. Patient states that when she woke up this morning, she
noticed left-sided abdominal pain and periumbilical pain. Patient states that this is associated with nausea and vomiting. She denies any diarrhea or constipation. Patient states her bowels are normal. Patient denies any changes to her urinary
habits, denies any dysuria, hematuria. Patient denies any chest pain or shortness of breath. Patient does use marijuana from time to time. Patient drinks alcohol daily, drinks 1-2 drinks per day. Patient does have a history of a left nephrectomy
she donated kidney, denies any other history of abdominal surgeries. She has never had pain like this before. Patient not able to identify any things
Past History
Past History
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
ED Past Surgical History: Orthopedic, Urological (Donor nephrectomy Left) and Other (Oral surgery )
Social History
Tobacco: Former smoker
Alcohol: Daily (wine 1-2 glasses)
Drug: None
Personal:
Living: with family
Employment: Employed
Family History
Family History: Hypertension
Review of Systems
Review of Systems
All Other Systems: ROS reviewed and negative except as documented in HPI and ROS
Phy Exam
Physical Exam
Physical Exam:
General: Patient appears uncomfortable secondary to pain but non-toxic appearing
Skin: Warm and dry, no rashes or lesions
Head: Normocephalic, atraumatic
Eyes: PERRLA, sclera non-icteric.
Cardiac: Patient tachycardic otherwise regular rhythm, no murmurs.
Peripheral vascular: No lower extremity swelling or edema
Pulm: Normal respiratory effort, no wheezes.
Abdomen: Guarding present, left sided abdominal tenderness noted. No palpable masses. Normoactive bowel sounds.
Neuro: CN II-XII intact, no focal neurologic deficits.
Psychiatric: Appropriate mood and affect.
Course
Orders/Labs/Results
Orders:
Orders
04/10/24 11:52
Basic Metabolic Panel Urgent
Complete Blood Count/With Diff Urgent
Lipase Urgent
04/10/24 12:45
CT Abd/pel W Iv And Oral Contr Urgent
Comment:
Reason For Exam: severe LLQ abdominal pain
0.9% Sodium Chloride 250 ml [Nss] 250 ml IV BOLUS
Iohexol [Omnipaque] See Protocol PO NOW STA
Ketorolac [Toradol] 15 mg IV NOW STA
Ondansetron Injectable [Zofran] 4 mg IV NOW STA
04/10/24 13:46
Prochlorperazine [Compazine] 5 mg IV NOW STA
04/10/24 13:48
HYDROmorphone [Dilaudid] 0.5 mg IV NOW STA
04/10/24 14:45
Add On- LAB Urgent
Tests Added?: hcg qual
Abnormal Lab Results
04/10/24
11:52
WBC 17.7 H 10^3/uL
(4.8-10.8)
MCH 34.2 H pg
(27.0-31.0)
Abs Immat Gran (auto) 0.1 H 10^3/uL
(0-0.05)
Absolute Neuts (auto) 14.6 H 10^3/uL
(1.4-6.5)
Absolute Lymphs (auto) 1.1 L 10^3/uL
(1.2-3.4)
Absolute Monos (auto) 1.6 H 10^3/uL
(0.1-0.6)
Neutrophils % 82.2 H %
(42.2-75.2)
Lymphocytes % 6.3 L %
(20.5-51.1)
BUN 19 H mg/dl
(7-17)
Glucose 133 H mg/dl
(70-99)
Calcium 10.5 H mg/dl
(8.4-10.2)
04/10/24 11:52
04/10/24 11:52
Vital Signs
Initial and Last Documented VS:
Initial Vital Signs
Pulse Resp BP Pulse Ox
57 16 174/106 98
04/10/24 11:40 04/10/24 11:40 04/10/24 11:40 04/10/24 11:40
Last Documented Vital Signs
Pulse Resp BP Pulse Ox
72 18 134/82 98
04/10/24 17:30 04/10/24 17:30 04/10/24 17:30 04/10/24 17:30
MDM/Problems Addressed
Differential Diagnosis Includes:
ddx include diverticulitis, appendicitis, gastritis, gastroenteritis, colitis, cannabinoid hyperemesis syndrome
MDM/Problems Addressed:
abdominal pain, nausea, vomiting
Chronic conditions affecting care:
asthma, hypertension, diverticulosis
*Pulse Oximetry
Patient hypoxic: no
*Critical Care Note
Total Time (30-74mins, 75-104mins- exclusive of procedures): Not Applicable
Data Reviewed
Review of Other/Old Records Reveals: Records (reviewed most recent ER physician documentation in which patient was hospitalized with hypothermia of unknown origin) and Discharge Summary (reviewed most recent discharge summary)
Source: patient and records
Patient Management
Escalation/DeEscalation of care consider admission/obs:
This is a 53-year-old female with past medical history of diverticulitis, asthma, hypertension presenting emergency department today for concerns of abdominal pain that started this morning. CT abdomen/pelvis reveals mild colitis. Considering
patient has an elevated WBC, was tachycardic, and was recently hospitalized for hypothermia of unknown origin with negative blood cultures, patient will be sent home on course of Augmentin. Advised follow up with cage loader or primary care
provider. Return precautions given. Patient's pain and vomiting resolved. Stable for discharge.
ED Attending Note
-
Portions of this chart may have been created with voice recognition software.� Occasional wrong word or��sound alike� substitutions may have occurred due to the inherent limitations of voice recognition software.
Discharge Plan
Departure
Patient Disposition: Home (Routine Discharge)
Date of Disposition: 04/10/24
Time of Disposition: 17:16
Patient with high blood pressure during this ER visit?: Yes
Condition: Good
Discharge Problem:
Colitis
Instructions: Nausea and Vomiting, Adult (DC), Abdominal Pain, BLOOD PRESSURE
Prescriptions:
New
amoxicillin-pot clavulanate 875-125 mg tablet
1 tab PO BID 10 Days Qty: 20 0RF
ondansetron 4 mg tablet,disintegrating
4 mg PO Q6H PRN (Reason: nausea and vomiting) Qty: 10 0RF
No Action
losartan 50 mg tablet
50 mg PO DAILY
Patient Comments:
04/10/2024, pt. took a tablet today but threw it up shortly after.
propranolol 60 mg capsule,extended release 24 hr
60 mg PO DAILY PRN (Reason: tachycardia)
oxycodone-acetaminophen 5-325 mg tablet
1 tab PO Q4H PRN (Reason: moderate pain)
omega 9-ugp-qis-fish oil [Fish Oil] 1,000 mg (120 mg-180 mg) Capsule
1 cap PO DAILY PRN (Reason: supplement)
Daily Greens
2 tab PO DAILY PRN (Reason: supplement)
prednisone 5 mg Tablet
20 mg PO DAILY
Patient Comments:
04/10/2024, 20 mg daily for a week and then decrease to 10 mg daily per pt.
potassium chloride 10 mEq tablet extended release
10 meq PO DAILYPRN PRN (Reason: cramping)
acetaminophen [Tylenol Extra Strength] 500 mg Tablet
1,000 mg PO BIDPRN PRN (Reason: mild pain)
Patient Comments:
04/10/2024, pt. took today but threw it up shortly after.
Referrals:
Iker Whatley MD [Active] - Call in 1-3 days for appt
Amilcar Crawford MD [Family Provider] -
Activity Restrictions/Additional Instructions:
We have sent Augmentin to your pharmacy. Please take 1 tablet twice daily for 10 days. We have also sent Zofran to your pharmacy, you can take 1 tablet dissolvable under the tongue as needed every 6 hours for nausea or vomiting.
Please return emergency department should you develop fevers, intractable vomiting, acute worsening of your pain, or any other signs or symptoms concerning to you.
We have attached a referral for cage loader. You can call tomorrow for an appointment.
Interventions
Interventions:
*Risk Screen - Suicide Last Done: 04/10/24 13:25
*General Assessment Last Done: 04/10/24 17:30
*Neglect/Abuse Screening Last Done: 04/10/24 17:30
ED- Fall Risk Assessment Last Done: 04/10/24 17:30
*ED COVID-19 Vaccine History Last Done: 04/10/24 11:40
*Nursing Disposition Last Done: 04/10/24 17:30
DV-Fepkcz-Pvtpgolrpv Assessment Last Done: 04/10/24 13:25
Discharge Date and Time
Discharge Date/Time: 04/10/24 17:32
Print Language: GHANAIAN
[2024-04-10 12:29] LABS: Blood Urea Nitrogen 19 mg/dl (7-17); Calcium 10.5 mg/dl (8.4-10.2); Carbon Dioxide 27 mmol/L (22-30); Chloride 104 mmol/L (98-107); Glucose 133 mg/dl (70-99); Lipase 91 U/L (23-300); Sodium 142 mmol/L (135-145); eGFR > 60.00
[2024-04-10] MEDS: TORADOL 15 MG IV (13:12)
[2024-04-10] MEDS: ZOFRAN 4 MG IV (13:13)
[2024-04-10] MEDS: NSS 250 IV (13:31)
[2024-04-10] MEDS: DILAUDID 0.5 MG IV (14:07)
[2024-04-10] MEDS: COMPAZINE 5 MG IV (14:08)
[2024-04-10 15:30] VITALS: BP 166/90
[2024-04-10 17:30] VITALS: BP 134/82
== END 2024-04-10 17:32 | disposition home or self-care (01) ==
LOC: EMR 11:31
PROVIDERS: Emergency Medicine; EMERGENCY PHYSICIAN Emergency Medicine; FAMILY PHYSICIAN Internal Medicine
DX: K52.9 Noninfective gastroenteritis and colitis, unspecified (principal); R10.9 Unspecified abdominal pain; R11.2 Nausea with vomiting, unspecified; K57.92 Diverticulitis of intestine, part unspecified, without perforation or abscess without bleeding; J45.909 Unspecified asthma, uncomplicated; I10 Essential (primary) hypertension; M19.90 Unspecified osteoarthritis, unspecified site; B02.9 Zoster without complications; F41.9 Anxiety disorder, unspecified; Z87.891 Personal history of nicotine dependence; Z90.5 Acquired absence of kidney
CPT/HCPCS: 99285; 96375 ×3; 96374; 74177; 80048; 83690; 85025; Q9967